=== PATIENT | female | born 2000 | race Caucasian/White ===

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

== ENCOUNTER 2023-11-27 16:50 | Emergency (ER) | payer BC ==
[~2023-11-27] VITALS: Ht 172.7 cm; Wt 65.9 kg
[2023-11-27 16:56] VITALS: TEMP 98.8
[2023-11-27] MEDS ORDERED: NS 1,000 ML IV ONE (17:15)
[2023-11-27] MEDS ORDERED: Ondansetron 4 MG/2 ML VIAL IV ONE (17:30)
[2023-11-27] MEDS ORDERED: Ketorolac 30 MG/ML VIAL IV ONE (17:30)
[2023-11-27 17:41] LABS: COLLECTION METHOD CLEAN CATCH
[2023-11-27 17:49] LABS: BASO % 0.4 % (0.0-2.0); EOS % 0.4 % (0.0-4.0); GRAN # 4.3 K/mm3 (1.4-6.5); GRAN % 59.8 % (42.2-75.2); HEMATOCRIT 42.2 % (37.0-47.0); HEMOGLOBIN 14.1 g/dl (12.5-16.0); LYMPH # 2.5 K/mm3 (1.2-3.4); LYMPH % 34.2 % (20.0-51.0); MEAN CELL VOLUME 94 fl (80.0-100.0); MEAN CORPUSCULAR HEMOGLOBIN 31 pg (27-31); MEAN CORPUSCULAR HGB CONC 33 g/dl (33.0-37.0); MEAN PLATELET VOLUME 11.9 fl (7.4-10.4); MONO # 0.4 K/mm3 (0.1-0.6); MONO % 4.9 % (1.7-9.3); PLATELET COUNT 180 K/mm3 (130-400); REDCELL DISTRIBUTION WIDTH-CV 11.9 % (11.5-14.5)
[2023-11-27 18:04] LABS: ALBUMIN 4.6 g/dL (3.5-5.0); BILIRUBIN,TOTAL 0.8 mg/dL (0.2-1.2); C-REACTIVE PROTEIN 0.02 mg/dL (0.00-0.50); CREATININE, serum 1.01 mg/dL (0.57-1.11); POTASSIUM 3.9 mEq/L (3.5-4.5); TOTAL PROTEIN 7.5 g/dl (6.2-8.1)
[2023-11-27 18:05] LABS: URINE COLOR YELLOW (YELLOW)
[2023-11-27 18:06] LABS: URINE APPEARANCE CLEAR (CLEAR/HAZY); URINE GLUCOSE NEGATIVE (NEGATIVE); URINE KETONE NEGATIVE (NEGATIVE); URINE PROTEIN(semi-quant) NEGATIVE (NEGATIVE); URINE UROBILINOGEN 0.2 E.U/dL (0.2-1.0)
[2023-11-27 18:07] LABS: URINE BLOOD NEGATIVE (NEGATIVE); URINE NITRATE NEGATIVE (NEGATIVE)
[2023-11-27 18:11] LABS: SQUAMOUS EPITHELIAL 0-2 /hpf (0-10); URINE RBC 0-2 /hpf (0-2); URINE WBC 0-2 /hpf (0-2)
[2023-11-27 18:14] LABS: MUCOUS PRESENT (NOT PRESENT); URINE BACTERIA OCCASIONAL /hpf (NONE SEEN)
[2023-11-27] MEDS ORDERED: PRIL40 PO (19:37)
[2023-11-27] MEDS ORDERED: CARAFATE 1GM1 G PO (19:37)
[2023-11-27 19:44] VITALS: BP 108/63; PULSE 58
== END 2023-11-27 19:44 | disposition home or self-care (01) ==
LOC: COL.ER 16:50
PROVIDERS: Nurse Practitioner
DX: R10.13 Epigastric pain (principal)
CPT/HCPCS: J1885; J2405; J7030